=== PATIENT | female | born 1955 | race Caucasian/White ===

== ENCOUNTER 2018-03-01 14:54 | Emergency (ER) | payer MEDICARE, MEDICAID ==
[~2018-03-01] VITALS: Ht 167.6 cm; Wt 97.2 kg
[~2018-03-01 14:54] MED LIST: HYDR-4353 PO; LOSA1TAB36 PO
[2018-03-01 15:03] VITALS: BP 150/89
== END 2018-03-01 15:24 | disposition home or self-care (01) ==
LOC: ER 14:54
DX: M79.89 Other specified soft tissue disorders (principal); T50.A15A Adverse effect of pertussis vaccine, including combinations with a pertussis component, initial encounter; G89.29 Other chronic pain; Z88.8 Allergy status to other drugs, medicaments and biological substances; Z88.5 Allergy status to narcotic agent; Z79.899 Other long term (current) drug therapy; Y92.89 Other specified places as the place of occurrence of the external cause
CPT/HCPCS: 99281

== ENCOUNTER 2018-03-19 12:18 | Emergency (ER) | payer MEDICARE, MEDICAID ==
[~2018-03-19] VITALS: Ht 165.1 cm; Wt 90.0 kg
[2018-03-19 12:26] VITALS: BP 161/92
[2018-03-19] MEDS ORDERED: SULF1TAB49 PO (12:27)
[2018-03-19] MEDS ORDERED: CEPH-572 PO (12:27)
== END 2018-03-19 12:33 | disposition home or self-care (01) ==
LOC: ER 12:18
DX: L03.116 Cellulitis of left lower limb (principal); G89.29 Other chronic pain; Z98.890 Other specified postprocedural states; Z88.5 Allergy status to narcotic agent; Z88.7 Allergy status to serum and vaccine; Z79.2 Long term (current) use of antibiotics; Z79.899 Other long term (current) drug therapy
CPT/HCPCS: 99283

== ENCOUNTER 2020-04-14 16:39 | Emergency (ER) | payer MEDICARE, MEDICAID ==
[~2020-04-14] VITALS: Ht 165.1 cm; Wt 108.0 kg
[~2020-04-14 16:39] MED LIST changes: +ALBU90AE2 INH; +BENA40TA72 PO; -HYDR-4353 PO; -LOSA1TAB36 PO; +PANT40TA54 PO; +PER5325T PO
[2020-04-14 16:42] VITALS: BP 174/79
[2020-04-14] MEDS ORDERED: CEPH-572 PO (17:54)
== END 2020-04-14 18:21 | disposition home or self-care (01) ==
LOC: ER 16:40
DX: L03.113 Cellulitis of right upper limb (principal); G89.29 Other chronic pain; Z98.891 History of uterine scar from previous surgery; Z88.7 Allergy status to serum and vaccine; Z88.8 Allergy status to other drugs, medicaments and biological substances; Z79.2 Long term (current) use of antibiotics; Z79.899 Other long term (current) drug therapy; Z98.890 Other specified postprocedural states
CPT/HCPCS: 29125; 99283

== ENCOUNTER 2020-09-28 21:30 | Emergency (ER) | payer MEDICARE, MEDICAID ==
[~2020-09-28] VITALS: Ht 165.1 cm; Wt 99.3 kg
[2020-09-28 23:10] LABS: CLARITY,URINE SLIGHTLY CLOUDY (Clear); COLOR,URINE YELLOW (Yellow); GLUCOSE, URINE NEGATIVE (Neg); KETONES,URINE NEGATIVE (Neg); LEUKOCYTE ESTERASE ,URINE TRACE (Neg); NITRITES, URINE NEGATIVE (Neg); OCCULT BLOOD,URINE SMALL (Neg); PROTEIN,URINE NEGATIVE (Neg); UROBILINOGEN,URINE 0.2 E.U/dL (0.2-1.0)
[2020-09-28 23:19] LABS: UA COLLECTION TYPE CLN CATCH MIDSTREAM
[2020-09-28 23:26] LABS: BACTERIA,URINE 1+ /HPF (Neg); MUCUS STRANDS MANY /LPF (Neg); RBC,URINE NONE SEEN /HPF (0-2); SQUAMOUS EPITHELIAL CELL,UR MANY /LPF (FEW)
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
[2020-09-29] MEDS ORDERED: metroNIDAZOLE 500mg tablet PO ONE (02:30)
[2020-09-29] MEDS ORDERED: METR500T PO (02:31)
--- NOTE | 2020-09-29 02:32 | NUR ---
PATIENT TO CT FOR SCAN OF LUMBAR SPINE. XPORT WITH OUTBOARD SYSTEM OPERATOR BY WHEELCHAIR.
[2020-09-29] MEDS ORDERED: cyclobenzaprine 10mg tablet PO ONE (02:35)
[2020-09-29] MEDS ORDERED: CYCL-1 PO (02:48)
[2020-09-29] MEDS ORDERED: ketorolac tromethamine 15mg/ml inj. IM ONE (02:50)
[2020-09-29 03:59] VITALS: BP 164/98
== END 2020-09-29 04:03 | disposition home or self-care (01) ==
LOC: ER 21:33
DX: N76.0 Acute vaginitis (principal); M54.5 Low back pain; G89.29 Other chronic pain; Z98.890 Other specified postprocedural states; Z88.8 Allergy status to other drugs, medicaments and biological substances; Z88.7 Allergy status to serum and vaccine; Z79.2 Long term (current) use of antibiotics; Z79.899 Other long term (current) drug therapy
CPT/HCPCS: 72131; 81001; 96372; 99284; J1885; J3490

== ENCOUNTER 2020-10-10 14:23 | Emergency (ER) | payer MEDICARE, MEDICAID ==
[~2020-10-10] VITALS: Ht 162.6 cm; Wt 98.0 kg
[~2020-10-10 14:23] MED LIST changes: +CYCL-1 PO
[2020-10-10 14:39] VITALS: BP 163/96
[2020-10-10] MEDS ORDERED: ketorolac tromethamine 15mg/ml inj. IM ONE (16:40)
[2020-10-10] MEDS ORDERED: orphenadrine citrate 60mg/2ml inj. IM ONE (16:40)
[2020-10-10] MEDS ORDERED: LIDOcaine 1% W/epiNEPHrine 1:200,000 10ml vial IJ ONE (16:50)
== END 2020-10-10 18:14 | disposition home or self-care (01) ==
LOC: ER 14:23
DX: S01.81XA Laceration without foreign body of other part of head, initial encounter (principal); S60.222A Contusion of left hand, initial encounter; W19.XXXA Unspecified fall, initial encounter; G89.29 Other chronic pain; M54.9 Dorsalgia, unspecified; Z88.5 Allergy status to narcotic agent; Z88.8 Allergy status to other drugs, medicaments and biological substances; Z79.899 Other long term (current) drug therapy
CPT/HCPCS: 12013; 70450; 70486; 73130; 96372; 99285; J1885; J2360

== ENCOUNTER 2021-10-28 08:20 | Emergency (ER) | payer MEDICARE, MEDICAID ==
[~2021-10-28] VITALS: Ht 165.1 cm; Wt 90.9 kg
[2021-10-28 08:29] VITALS: BP 129/86
[2021-10-28] MEDS ORDERED: diphenhydrAMINE 50 mg/ml inj IV ONE (08:40)
[2021-10-28] MEDS ORDERED: dexamethasone sod phosphate 10mg/ml inj IV STA (08:40)
[2021-10-28] MEDS ORDERED: tranexamic acid 100mg/ml inj. IV ONE (08:40)
[2021-10-28 09:03] LABS: BASOPHILS % (AUTO) 0.7 % (0-1); EOSINOPHILS # (AUTO) 0.1 X10'3 (0-0.9); EOSINOPHILS % (AUTO) 2.9 % (0-6); HEMOGLOBIN 13.8 g/dl (12.0-16.0); LYMPHOCYTES # (AUTO) 1.2 X10'3 (1.1-4.8); LYMPHOCYTES % (AUTO) 24.9 % (21-51); MEAN CORPUSCULAR HGB CONC 32.9 g/dL (33.0-36.5); MEAN CORPUSCULAR VOLUME 85.2 FL (78-98); MEAN PLATELET VOLUME 8.1 FL (7.4-10.4); MONOCYTES # (AUTO) 0.4 X10'3 (0-0.9); MONOCYTES % (AUTO) 7.4 % (2-12); NEUTROPHILS % (AUTO) 64.1 % (42-75); PLATELET COUNT 285 X10'3 (140-440); RED BLOOD COUNT 4.93 X10'6 (4.20-5.60); RED CELL DISTRIBUTION WIDTH 14.4 % (11.5-14.5); WHITE BLOOD COUNT 4.7 X10'3 (4.5-11.0)
[2021-10-28 09:24] LABS: ALANINE AMINOTRANSFERASE 18 U/L (12-78); ALBUMIN 3.4 G/DL (3.4-5.0); ALBUMIN/GLOBULIN RATIO 0.9 (1.1-1.5); ALKALINE PHOSPHATASE 85 IU/L (46-116); ANION GAP 11 (8-16); ASPARTATE AMINO TRANSFERASE 15 U/L (10-37); BILIRUBIN,TOTAL 0.4 MG/DL (0.1-1.0); BLOOD UREA NITROGEN 13 MG/DL (7-18); BUN/CREATININE RATIO 14.9 (6.6-38.0); CALCIUM 9.1 MG/DL (8.5-10.1); CHLORIDE 108 MMOL/L (99-107); CREATININE 0.87 MG/DL (0.40-0.90); GLUCOSE 134 MG/DL (70-104); SODIUM 145 MMOL/L (135-145); TOTAL CARBON DIOXIDE 26.4 MMOL/L (24-32); TOTAL PROTEIN 7.4 G/DL (6.4-8.2); eGFR 65 ML/MIN
== END 2021-10-28 10:28 | disposition home or self-care (01) ==
LOC: ER 08:20
DX: T78.3XXA Angioneurotic edema, initial encounter (principal); I10 Essential (primary) hypertension; G89.29 Other chronic pain; M54.9 Dorsalgia, unspecified; Z88.5 Allergy status to narcotic agent; Z79.899 Other long term (current) drug therapy; Z88.8 Allergy status to other drugs, medicaments and biological substances
CPT/HCPCS: 36415; 80053; 85025; 96374; 96375; 99284; J1100; J1200; J3490

== ENCOUNTER 2021-12-06 15:35 | Emergency (ER) | payer MEDICARE, MEDICAID ==
[~2021-12-06] VITALS: Ht 165.1 cm; Wt 94.5 kg
[2021-12-06 15:48] VITALS: BP 144/79
[2021-12-06] MEDS ORDERED: cyclobenzaprine 10mg tablet PO ONE (19:30)
[2021-12-06] MEDS ORDERED: ketorolac trometh. 30mg/ml inj. IM ONE (19:30)
[2021-12-06] MEDS ORDERED: CYCL-1 PO (19:35)
[2021-12-06] MEDS ORDERED: MELO10CA3 PO (19:35)
== END 2021-12-06 19:57 | disposition home or self-care (01) ==
LOC: ER 15:36
DX: G89.29 Other chronic pain (principal); M54.50 Low back pain, unspecified; I10 Essential (primary) hypertension; Z88.8 Allergy status to other drugs, medicaments and biological substances; Z79.899 Other long term (current) drug therapy; Z88.7 Allergy status to serum and vaccine
CPT/HCPCS: 96372; 99283; J1885

== ENCOUNTER 2022-05-03 13:02 | Emergency (ER) | payer MEDICARE, MEDICAID ==
[~2022-05-03] VITALS: Ht 165.1 cm; Wt 90.0 kg
[~2022-05-03 13:02] MED LIST changes: +MELO10CA3 PO
[2022-05-03 13:17] VITALS: BP 195/101
[2022-05-03] MEDS ORDERED: DICL100G60 TP (14:26)
[2022-05-03] MEDS ORDERED: ketorolac tromethamine 15mg/ml inj. IM ONE (14:35)
== END 2022-05-03 14:54 | disposition home or self-care (01) ==
LOC: ER 13:02
DX: M25.461 Effusion, right knee (principal); M25.561 Pain in right knee; I10 Essential (primary) hypertension; G89.29 Other chronic pain; M54.50 Low back pain, unspecified; Z88.8 Allergy status to other drugs, medicaments and biological substances
CPT/HCPCS: 73564; 96372; 99284; J1885; A6449

== ENCOUNTER 2022-12-08 16:38 | Emergency (ER) | payer MEDICARE, MEDICAID ==
[~2022-12-08] VITALS: Ht 162.6 cm; Wt 89.6 kg
[~2022-12-08 16:38] MED LIST changes: +DICL100G60 TP
[2022-12-08 17:04] VITALS: BP 155/86; PULSE 87; RESP 18; TEMP 98.5; O2SAT 96
[2022-12-08] MEDS ORDERED: bacitracin 15gm ointment TP ONE (17:55)
[2022-12-08] MEDS ORDERED: CEPH-585 PO (17:58)
== END 2022-12-08 19:26 | disposition home or self-care (01) ==
LOC: ER 16:39
DX: L03.115 Cellulitis of right lower limb (principal); G89.29 Other chronic pain; M54.9 Dorsalgia, unspecified; I10 Essential (primary) hypertension; Z88.5 Allergy status to narcotic agent; Z88.8 Allergy status to other drugs, medicaments and biological substances; Z88.6 Allergy status to analgesic agent; Z79.899 Other long term (current) drug therapy
CPT/HCPCS: 99283

== ENCOUNTER 2023-12-04 20:37 | Emergency (ER) | payer MEDICARE, MEDICAID ==
[~2023-12-04] VITALS: Ht 162.6 cm; Wt 88.6 kg
[~2023-12-04 20:37] MED LIST changes: -ALBU90AE2 INH; +ALBU90AE3 INH; +CEPH-585 PO
[2023-12-04 22:06] LABS: BASOPHILS % (AUTO) 0.6 % (0-1); EOSINOPHILS # (AUTO) 0.1 X10'3 (0-0.9); EOSINOPHILS % (AUTO) 1.2 % (0-6); HEMATOCRIT 42.4 % (35.0-45.0); HEMOGLOBIN 14.1 g/dl (12.0-16.0); LYMPHOCYTES # (AUTO) 1.2 X10'3 (1.1-4.8); LYMPHOCYTES % (AUTO) 17.8 % (21-51); MEAN CORPUSCULAR HEMOGLOBIN 30.3 PG (27.0-31.0); MEAN CORPUSCULAR HGB CONC 33.1 g/dL (33.0-36.5); MEAN CORPUSCULAR VOLUME 91.6 FL (78-98); MEAN PLATELET VOLUME 8.1 FL (7.4-10.4); MONOCYTES # (AUTO) 0.6 X10'3 (0-0.9); MONOCYTES % (AUTO) 8.7 % (2-12); NEUTROPHILS # (AUTO) 4.8 X10'3 (1.8-7.7); NEUTROPHILS % (AUTO) 71.7 % (42-75); PLATELET COUNT 250 X10'3 (140-440); RED BLOOD COUNT 4.63 X10'6 (4.20-5.60); RED CELL DISTRIBUTION WIDTH 14.1 % (11.5-14.5); WHITE BLOOD COUNT 6.7 X10'3 (4.5-11.0)
[2023-12-04 22:18] LABS: ALANINE AMINOTRANSFERASE 20 U/L (12-78); ALBUMIN 3.7 G/DL (3.4-5.0); ALKALINE PHOSPHATASE 85 IU/L (46-116); ANION GAP 9 (8-16); ASPARTATE AMINO TRANSFERASE 18 U/L (10-37); BILIRUBIN,TOTAL 0.3 MG/DL (0.1-1.0); BLOOD UREA NITROGEN 15 MG/DL (7-18); BUN/CREATININE RATIO 16.3 (10.0-20.0); CALCIUM 9.3 MG/DL (8.5-10.1); CHLORIDE 104 MMOL/L (99-107); CREATININE 0.92 MG/DL (0.40-0.90); GLUCOSE 146 MG/DL (70-104); POTASSIUM 3.9 MMOL/L (3.5-5.1); SODIUM 140 MMOL/L (135-145); TOTAL PROTEIN 7.5 G/DL (6.4-8.2); eCRCL 50 ML/MIN; eGFR 61 ML/MIN
[2023-12-04 22:26] LABS: BILIRUBIN,DIRECT 0.1 MG/DL (0-0.3); LIPASE 12 U/L (16-77); MAGNESIUM 2.2 MG/DL (1.5-2.4); THYROID STIMULATING HORMONE 2.01 ulU/ml (0.34-4.50)
[2023-12-04] MEDS: acetaminophen 325mg tablet PO ONE (22:32)
[2023-12-04] MEDS: hyDRALAzine 10mg tablet PO ONE (22:33)
[2023-12-04] MEDS: amLODIPine 5mg tablet PO ONE (22:33)
[2023-12-04 22:50] LABS: BILIRUBIN,URINE NEGATIVE (Neg); CLARITY,URINE CLEAR (Clear); COLOR,URINE YELLOW (Yellow); GLUCOSE, URINE NEGATIVE (Neg); KETONES,URINE NEGATIVE (Neg); LEUKOCYTE ESTERASE ,URINE NEGATIVE (Neg); NITRITES, URINE NEGATIVE (Neg); OCCULT BLOOD,URINE SMALL (Neg); PH,URINE 5.5 (4.8-8.0); PROTEIN,URINE NEGATIVE (Neg); UROBILINOGEN,URINE 0.2 E.U/dL (0.2-1.0)
[2023-12-04 23:02] LABS: UA COLLECTION TYPE CLN CATCH MIDSTREAM
[2023-12-04 23:03] LABS: BACTERIA,URINE 1+ /HPF (Neg); SQUAMOUS EPITHELIAL CELL,UR FEW /LPF (FEW); WBC,URINE 0-4 /HPF (0-4)
[2023-12-04 23:04] LABS: MUCUS STRANDS FEW /LPF (Neg)
[2023-12-04] MEDS ORDERED: AMLO10TA4 PO (23:56)
[2023-12-05 00:15] VITALS: BP 156/86; PULSE 70; RESP 18; TEMP 98.3; O2SAT 97
== END 2023-12-05 00:18 | disposition home or self-care (01) ==
LOC: ER 20:38
DX: I16.0 Hypertensive urgency (principal); I10 Essential (primary) hypertension; G89.29 Other chronic pain; M54.9 Dorsalgia, unspecified; Z88.5 Allergy status to narcotic agent; Z88.8 Allergy status to other drugs, medicaments and biological substances; Z79.899 Other long term (current) drug therapy; Z79.2 Long term (current) use of antibiotics; Z98.51 Tubal ligation status
CPT/HCPCS: 36415; 80048; 80076; 81001; 83690; 83735; 84443; 84484; 85025; 93005; 99284

== ENCOUNTER 2024-01-01 12:36 | Outpatient (CLI) | payer MEDICARE, MEDICAID ==
[~2024-01-01 12:36] MED LIST changes: +AMLO10TA4 PO; -CEPH-585 PO
== END 2024-01-01 23:59 | disposition home or self-care (01) ==
LOC: 64 CT 12:36
PROVIDERS: ATTEND Pediatrics Sports Medicine
DX: M43.13 Spondylolisthesis, cervicothoracic region (principal); M47.812 Spondylosis without myelopathy or radiculopathy, cervical region; M50.30 Other cervical disc degeneration, unspecified cervical region
CPT/HCPCS: 72125

== ENCOUNTER 2024-03-22 15:51 | Outpatient (CLI) | payer MEDICARE, MEDICAID | END 2024-03-22 23:59 | disposition home or self-care (01) | LOC: MRI 15:51 | PROVIDERS: ATTEND Physical Medicine & Rehabilitation | DX: M48.061 Spinal stenosis, lumbar region without neurogenic claudication (principal); M47.817 Spondylosis without myelopathy or radiculopathy, lumbosacral region; M54.50 Low back pain, unspecified; M43.26 Fusion of spine, lumbar region; M46.1 Sacroiliitis, not elsewhere classified; M51.35 Other intervertebral disc degeneration, thoracolumbar region; M41.86 Other forms of scoliosis, lumbar region | CPT/HCPCS: 72148 ==

== ENCOUNTER 2024-06-14 16:01 | Emergency (ER) | payer MEDICARE, MEDICAID ==
[~2024-06-14] VITALS: Ht 162.6 cm; Wt 89.7 kg
[2024-06-14 16:17] VITALS: BP 193/102; PULSE 74; RESP 18; TEMP 96.9; O2SAT 98
[2024-06-14] MEDS: LIDOcaine 5% patch TP STA (19:24)
== END 2024-06-14 20:46 | disposition home or self-care (01) ==
LOC: ER 16:01
DX: M54.2 Cervicalgia (principal); I10 Essential (primary) hypertension; Z88.5 Allergy status to narcotic agent; Z88.8 Allergy status to other drugs, medicaments and biological substances; Z98.51 Tubal ligation status; Z98.890 Other specified postprocedural states; V89.2XXA Person injured in unspecified motor-vehicle accident, traffic, initial encounter; Y93.89 Activity, other specified; Y92.410 Unspecified street and highway as the place of occurrence of the external cause; Y99.8 Other external cause status
CPT/HCPCS: 72125; 99284; L0172

== ENCOUNTER 2024-09-19 10:55 | Emergency (ER) | payer MEDICARE, MEDICAID ==
[~2024-09-19 10:55] MED LIST changes: +AMLO-912 PO; -AMLO10TA4 PO
[2024-09-19 11:00] VITALS: BP 135/65; PULSE 81; RESP 18; TEMP 98.9; O2SAT 98
--- NOTE | 2024-09-19 11:26 | Physician Documentation ---
History of Present Illness ~ Chief Complaint: Laceration Stated Complaint: HAND LAC Time Seen by MD: 11:10 OK to notify your PCP?: No Primary Medical Doctor: Dr. Allen HPI 68-year-old female presents to the ED with a complaint of injury to the posterior aspect of her right hand. She states she caught it in the screen door this morning. States she is not up-to-date on her tetanus as well. He is currently controlled appears to be a skin tear Tetanus Within 5 Years: Yes Medication Reconciliation Allergies: Coded Allergies: hydromorphone (Verified Adverse Reaction, Severe, 09/19/24) gabapentin (Verified Adverse Reaction, Unknown, RASH, 09/19/24) pregabalin (Verified Adverse Reaction, Unknown, RASH, 09/19/24) Scheduled Amlodipine Besylate (Norvasc), 1 TAB PO DAILY Benazepril HCl (Benazepril HCl), 1 TAB PO DAILY, (Reported) Cyclobenzaprine* (Cyclobenzaprine*), 1 TAB PO Q8H Cyclobenzaprine* (Cyclobenzaprine*), 1 TAB PO Q8H Diclofenac Sodium (Arthritis Pain), 4 GM TP QID Meloxicam, Submicronized (Meloxicam), 10 MG PO DAILY Mupirocin* (Bactroban*), 1 APPLIC TOP Q8H Pantoprazole Sodium (Pantoprazole Sodium), 1 TAB PO DAILY, (Reported) Scheduled PRN Albuterol Sulfate (Proair Digihaler), 2 PUFF INH Q6H PRN for SOB or wheezing, (Reported) Oxycodone Hcl/Acetaminophen 5/325 MG* (Percocet 5/325 MG*), 1 TAB PO Q4H PRN for pain 4-6 Past Medical History Past Medical History: Hypertension, Chronic Pain, Chronic Back Pain Past Surgical History: orthopedic surgeries, tubal ligation Alcohol Use: None Drug Use: none Lives with: Family Lives In: Home Occupation: employed Physical Exam Vital Signs: Temperature: 98.9, Source: Temporal, Heart Rate: 81, Respiratory Rate: 18, BP: 135/65, Pulse Oximetry: 98 Physical Exam General: Alert, no apparent distress. Extremities: Normal range of motion, no deformity. 4-5 cm skin teear Neurologic: Oriented x4. Psychiatric: Normal mood and affect. Skin: Normal color, warm and dry. No edema, no ecchymosis. Progress Results/Orders Results/Orders Completed Orders - BRANDON RUTLEDGE NP Tetanus/Pertuss/Diph Acell/Pf (Boostrix (09/19/24 11:50) Vital Signs 09/19/24 11:00 Temp 98.9 Pulse 81 Resp 18 B/P (MAP) 135/65 Pulse Ox 98 Medical Decision Making Findings Patient's skin tear was repaired via Steri-Strips and benzoin wound was well approximated. wound is also irrigated prior to Departure Disposition: 01 HOME / SELF CARE / HOMELESS Impression: Primary Impression: Laceration Condition: Stable Discharge Instructions: Laceration Care, Adult, [id number] Referrals: NO PRIMARY CARE PROVIDER (PCP) Prescriptions Mupirocin* (Bactroban*) 22 Gm Tube 1 APPLIC TOP Q8H for 5 Days, #15 GM apply to affected area(s) Prov: BRANDON RUTLEDGE NP 09/19/24 Signature Scribe Signature: yt Attestation: The note accurately reflects work and decisions made by me.Brandon Rutledge - ISATU 09/19/24 18:11 BRANDON RUTLEDGE NP September 19, 2024 11:26
[2024-09-19] MEDS ORDERED: MUPI22OI30 TOP (11:48)
[2024-09-19] MEDS: TETanus/Pertussis (Acell)/Diphther VAC/PF (Tdap-Adult) 0.5ml syringe IMVAC ONE (11:52)
== END 2024-09-19 12:20 | disposition home or self-care (01) ==
LOC: ER 10:55
DX: S61.411A Laceration without foreign body of right hand, initial encounter (principal); I10 Essential (primary) hypertension; Z88.5 Allergy status to narcotic agent; Z88.8 Allergy status to other drugs, medicaments and biological substances; Z98.51 Tubal ligation status; X58.XXXA Exposure to other specified factors, initial encounter; Y93.89 Activity, other specified; Y92.89 Other specified places as the place of occurrence of the external cause; Y99.8 Other external cause status
CPT/HCPCS: 99283; A6222; A6258; A6402; A6449

== ENCOUNTER 2025-02-21 18:57 | Emergency (ER) | payer MEDICARE, MEDICAID ==
[~2025-02-21] VITALS: Ht 167.6 cm; Wt 89.0 kg
[2025-02-21 19:08] VITALS: BP 140/74; PULSE 72; RESP 18; TEMP 98; O2SAT 97
--- NOTE | 2025-02-21 20:03 | RADIOLOGY REPORT ---
EXAM: CT CT HEAD INDICATION: fall TECHNIQUE: CT images of the head were obtained without administration of IV contrast. CT scans at this facility use dose modulation, iterative reconstruction, and/or weight based dosing when appropriate to reduce radiation dose to as low as reasonably achievable. COMPARISON: CT CT FACIAL BONES/SOFT TISSUE on DOS: 02/21/25 FINDINGS: PARENCHYMA: No acute hemorrhage. There is no mass effect, midline shift, or herniation. There is preservation of the perry white differentiation. Mild scattered hypoattenuation along the periventricular, centrum semiovale, and deep white matter tracts, which are nonspecific however statistically most likely represent chronic microvascular ischemic change. VENTRICLES: No hydrocephalus. EXTRA-AXIAL SPACES: No extra-axial fluid collections. OTHER: The bony structures are intact. Visualized portions of the paranasal sinuses and mastoid air cells are clear. IMPRESSION: 1. No CT evidence of an acute intracranial abnormality.
--- NOTE | 2025-02-21 20:32 | RADIOLOGY REPORT ---
EXAM: CT CT CERVICAL SPINE INDICATION: fall EXAM DATE: 02/21/2025 07:30 PM COMPARISON: CT CT HEAD on DOS: 02/21/25, CT CT CERVICAL SPINE on DOS: 06/14/24, CT CT CERVICAL SPINE on DOS: 01/01/24, CT HEAD on DOS: 10/10/20 TECHNIQUE: Multiple axial CT images of the cervical spine were obtained using bone algorithm. Axial and coronal reformatting was done. Bone and soft tissue windows were reviewed. Radiation Dose Information: CT Dose: CTDI volume is 20.41 mGy. Dose-length product is 482.3 mGy*cm FINDINGS: There is no acute displaced fracture. Anterior fusion hardware spans C5 through C7. There is grade 1 anterolisthesis of C7 on T1. There is chronic appearing mild compression of the superior endplate as T3. There are degenerative changes of the cervical spine characterized by endplate osteophytosis and intervertebral disc space narrowing. Disc osteophyte complexes at C5-6 and C6-7 efface the thecal sac. Degenerative uncovertebral and facet hypertrophy contribute to multilevel neural foraminal narrowing. The paraspinal soft tissues and lung apices are unremarkable. IMPRESSION: 1. No acute displaced fracture. 2. Degenerative and postsurgical changes of the cervical spine as detailed. 3. All CT scans at this medical facility are performed using dose modulation techniques as appropriate to a performed exam including the following: Automated exposure control was utilized; adjustment of the MA and/or KV according to patient size; and use of iterative reconstruction technique.
--- NOTE | 2025-02-21 20:35 | RADIOLOGY REPORT ---
CT CT FACIAL BONES/SOFT TISSUE INDICATION: fall TECHNIQUE: Noncontrast axial images of the facial bones are then obtained along with coronal and sagittal reformatted images. All CT scans at this facility use dose modulation, iterative reconstruction, and/or weight based dosing when appropriate to reduce radiation dose to as low as reasonably achievable. COMPARISON: CT FACIAL BONES/SOFT TISSUE on DOS: 10/10/20 FINDINGS: FACIAL BONES: The nasal, lacrimal, inferior nasal emmett, and palatine bones are intact. The vomer and perpendicular plate of the ethmoid are intact. The zygomatic bones are intact.5 The maxilla is intact. The mandible is intact. PARANASAL SINUSES: The bony margins of the paranasal sinuses are intact. There is no air fluid level within the sinuses. The paranasal sinuses are essentially clear. ORBITS: The right and left globes are intact. The bony margins of the orbits are intact. The extraconal space is intact without inflammatory stranding of the extraconal fat. The extraocular muscles are symmetric. The intraconal space including the optic canal and nerve are symmetric. OTHER: None IMPRESSION: 1. No CT evidence of an acute facial fracture.
--- NOTE | 2025-02-21 21:56 | Physician Documentation ---
History of Present Illness ~ Chief Complaint: Mechanical Fall Stated Complaint: FALL/ NO BLOOD THINNERS Time Seen by MD: 21:53 Primary Medical Doctor: Dr. Allen HPI 69 or female mechanical fall yesterday without loss of consciousness yet head strike to the left Temporoparietal area. PATIENT WAS referred to the emergency department for imaging. Seen earlier by her primary care physician AND HAD fluorescein stain which was negative for corneal abrasion. SHE has no reported concussive symptoms. Reports that the swelling that was initially theRE has considerably resolved and she continues to have Ecchymosis to the left eye witho ut visual changes. She has a steady gait & she has grossly NEOROlogically intact without focal Neuro deficits. THERE ARE SEVERAL SUPERFICIAL ABRASIONS REPORTED TO LOWER EXTREMITIES. SHE IS ACCOMPANIED BY A FRIEND IN THE EMERGENCY DEPARTMENT. Tetanus within 5 Years?: No Medication Reconciliation Allergies: Coded Allergies: hydromorphone (Verified Adverse Reaction, Severe, 09/19/24) gabapentin (Verified Adverse Reaction, Unknown, RASH, 09/19/24) pregabalin (Verified Adverse Reaction, Unknown, RASH, 09/19/24) Scheduled Amlodipine Besylate (Norvasc), 1 TAB PO DAILY Benazepril HCl (Benazepril HCl), 1 TAB PO DAILY, (Reported) Cyclobenzaprine* (Cyclobenzaprine*), 1 TAB PO Q8H Cyclobenzaprine* (Cyclobenzaprine*), 1 TAB PO Q8H Diclofenac Sodium (Arthritis Pain), 4 GM TP QID Meloxicam, Submicronized (Meloxicam), 10 MG PO DAILY Pantoprazole Sodium (Pantoprazole Sodium), 1 TAB PO DAILY, (Reported) Scheduled PRN Albuterol Sulfate (Proair Digihaler), 2 PUFF INH Q6H PRN for SOB or wheezing, (Reported) Oxycodone Hcl/Acetaminophen 5/325 MG* (Percocet 5/325 MG*), 1 TAB PO Q4H PRN for pain 4-6 Past Medical History Past Medical History: Hypertension, Chronic Pain, Chronic Back Pain Past Surgical History: orthopedic surgeries, tubal ligation Alcohol Use: None Drug Use: none Lives with: Family Lives In: Home Occupation: employed Physical Exam Vital Signs: Temperature: 98.0, Source: Temporal, Heart Rate: 72, Respiratory Rate: 18, BP: 140/74, Pulse Oximetry: 97, Weight: 89.000 Oxygen Flow Rate: 0 Progress Results/Orders Results/Orders Vital Signs 02/21/25 19:08 Temp 98.0 Pulse 72 Resp 18 B/P (MAP) 140/74 Pulse Ox 97 O2 Flow Rate 0 Medical Decision Making Additional information obtaine: family Findings 69-YEAR-OLD FEMALE MECHANICAL FALL GREATER THAN 24 HOURS AGO. REFERRED TO THE EMERGENCY DEPARTMENT BY PRIMARY CARE PHYSICIAN FOR IMAGING. ADVANCED IMAGING OBTAINED IN THE EMERGENCY DEPARTMENT INCLUDING CT HEAD, CT FACIAL BONES AND NECK ALL REASSURING NEGATIVE. PATIENT REMAINS GROSSLY NEUROLOGICALLY INTACT WITH A STEADY GAIT. RECOMMENDATIONS ARE TO CONTINUE WITH PRIMARY CARE FOLLOW UP IN TOPICAL BACITRACIN TO THE SUPERFICIAL ABRASIONS. SHE WAS DISCHARGED FROM THE EMERGENCY DEPARTMENT SAFE STABLE CONDITION WITH ALL QUESTIONS ANSWERED. SHE WAS DISCHARGED IN THE COMPANY OF HER FRIEND. Differential Dx:Considerations: Include: Closed head injury, Fracture(s), Spine injury, Contusion(s), Hematoma(s) Departure Disposition: HOME / SELF CARE / HOMELESS Impression: Primary Impression: Closed head injury Qualified Codes: S09.90XA - Unspecified injury of head, initial encounter Additional Impressions: Contusion, eye, left Qualified Codes: S05.12XA - Contusion of eyeball and orbital tissues, left eye, initial encounter Superficial abrasion Condition: Stable Discharge Instructions: Abrasion, Head Injury, Adult, [id number] Additional Instructions: Your CT imaging obtained tonight is all reassuring. Please take Tylenol for discomforting follow up with the primary care physician for additional managem ent as needed. Please apply topical antibiotic to abrasions. Thank you for visiting emergency department [facility]. Referrals: NO PRIMARY CARE PROVIDER (PCP) Education Educated: Patient Educated regarding: diagnosis, treatment, prognosis, need for follow up Signature Scribe Signature: . Attestation: . GRADY ROWE PAC Feb 21, 2025 21:56
== END 2025-02-21 22:07 | disposition home or self-care (01) ==
LOC: ER 18:58
DX: S00.12XA Contusion of left eyelid and periocular area, initial encounter (principal); I10 Essential (primary) hypertension; G89.29 Other chronic pain; Z98.51 Tubal ligation status; Z88.5 Allergy status to narcotic agent; Z88.8 Allergy status to other drugs, medicaments and biological substances; Z79.899 Other long term (current) drug therapy; W01.10XA Fall on same level from slipping, tripping and stumbling with subsequent striking against unspecified object, initial encounter; Y93.89 Activity, other specified; Y92.89 Other specified places as the place of occurrence of the external cause; Y99.8 Other external cause status
CPT/HCPCS: 70450; 70486; 72125; 99284